=== PATIENT | female | born 1960 | race Caucasian/White ===

== ENCOUNTER 2017-01-31 19:31 | Emergency (ER) | payer MEDICARE ==
[2017-01-31 23:31] LABS: RED BLOOD COUNT 4.22 M/UL (4.00-5.10); WHITE BLOOD COUNT 10.1 K/UL (4.5-11.0)
[2017-01-31 23:51] LABS: BUN/CREATININE RATIO 15 (0-10)
== END 2017-02-01 03:30 | disposition home or self-care (01) ==
LOC: ER1 19:31
PROVIDERS: Student in an Organized Health Care Education/Training Program
DX: R10.11 Right upper quadrant pain (principal); E11.9 Type 2 diabetes mellitus without complications; E78.5 Hyperlipidemia, unspecified; F41.9 Anxiety disorder, unspecified; F32.9 Major depressive disorder, single episode, unspecified; F17.210 Nicotine dependence, cigarettes, uncomplicated; Z79.899 Other long term (current) drug therapy
CPT/HCPCS: 36415; 80053; 81001; 83690; 85025; 87086; 99284

== ENCOUNTER 2020-10-16 17:11 | Emergency (ER) | payer OTHER ==
[2020-10-16] MEDS ORDERED: CYCLOBENZAPRINE5 MG PO (19:51)
== END 2020-10-16 20:46 | disposition home or self-care (01) ==
LOC: ER1 17:11
DX: S16.1XXA Strain of muscle, fascia and tendon at neck level, initial encounter (principal); S46.912A Strain of unspecified muscle, fascia and tendon at shoulder and upper arm level, left arm, initial encounter; R51.9 Headache, unspecified; M47.812 Spondylosis without myelopathy or radiculopathy, cervical region; M50.322 Other cervical disc degeneration at C5-C6 level; I10 Essential (primary) hypertension; E11.9 Type 2 diabetes mellitus without complications; F17.200 Nicotine dependence, unspecified, uncomplicated; V49.40XA Driver injured in collision with unspecified motor vehicles in traffic accident, initial encounter; Y92.410 Unspecified street and highway as the place of occurrence of the external cause
CPT/HCPCS: 70450; 72040; 73030; 99284

== ENCOUNTER 2020-10-21 22:03 | Observation (INO) | payer OTHER ==
[~2020-10-21] VITALS: Ht 162.6 cm; Wt 63.5 kg
[~2020-10-21 22:03] MED LIST: CYCLOBENZAPRINE5 MG PO
[2020-10-22 02:35] LABS: HEMOGLOBIN 12.9 gm/dl (12.3-15.3); RED BLOOD COUNT 4.5 M/UL (4.00-5.10); WHITE BLOOD COUNT 12.1 K/UL (4.5-11.0)
[2020-10-22 02:56] LABS: BUN/CREATININE RATIO 16 (0-10)
[2020-10-22] MEDS ORDERED: BUPRENORPHIN-N1 EACH SL (10:35)
[2020-10-22] MEDS ORDERED: AMLODIPINE BESYL5 MG PO (10:36)
[2020-10-22] MEDS ORDERED: CYCLOBENZAPRINE10 MG PO (10:36)
[2020-10-22] MEDS ORDERED: FISH OIL 1,0001 EACH PO (10:36)
[2020-10-22] MEDS ORDERED: DESYREL 50 MG T50 MG PO (10:36)
[2020-10-22] MEDS ORDERED: FLUOXETINE HCL40 MG PO (10:37)
[2020-10-22] MEDS ORDERED: LISINOPRIL10 MG PO (10:38)
[2020-10-22] MEDS ORDERED: KLONOPIN TAB 00.5 MG PO (10:38)
[2020-10-22] MEDS ORDERED: SUMATRIPTAN SU100 MG PO (10:39)
[2020-10-22] MEDS ORDERED: PRAVASTATIN SOD40 MG PO (10:39)
[2020-10-22] MEDS ORDERED: GABAPENTIN800 MG PO (10:40)
[2020-10-22] MEDS ORDERED: VENTOLIN HFA 66.7 GM INH (10:40)
[2020-10-22] MEDS ORDERED: ALBUTEROL2.5 MG/3 M INH (10:40)
[2020-10-22] MEDS ORDERED: OMEPRAZOLE20 MG PO (10:41)
[2020-10-22] MEDS ORDERED: IBUPROFEN600 MG PO (10:41)
[2020-10-22] MEDS ORDERED: GLUCOPHAGE 500500 MG PO (10:41)
[2020-10-23] MEDS ORDERED: ASPIRIN EC81 MG PO (10:05)
== END 2020-10-23 13:29 | disposition home or self-care (01) ==
LOC: ER1 22:03 → ZEROF 10-22 04:46 → M/S 10-22 19:55
PROVIDERS: Emergency Medicine; ADMIT Hospitalist
DX: R47.81 Slurred speech (principal); R41.0 Disorientation, unspecified; R47.01 Aphasia; I11.9 Hypertensive heart disease without heart failure; F17.210 Nicotine dependence, cigarettes, uncomplicated; E78.5 Hyperlipidemia, unspecified; F41.9 Anxiety disorder, unspecified; F32.9 Major depressive disorder, single episode, unspecified; I65.23 Occlusion and stenosis of bilateral carotid arteries; E87.6 Hypokalemia; Z20.822 Contact with and (suspected) exposure to COVID-19; Z79.899 Other long term (current) drug therapy; Z79.84 Long term (current) use of oral hypoglycemic drugs; Z98.51 Tubal ligation status
CPT/HCPCS: ECHO; 70450; 70496; 70498; 70551; 71045; 80053; 81001; 82550; 82553; 82962; 84484; 85025; 93005; 93306; 93880; 96372; 96374; 99285; G0378; J1650; J2405; Q9967; U0002